=== PATIENT | female | born 1995 | race Caucasian/White ===

== ENCOUNTER 2021-06-27 16:33 | Emergency (ER) | payer OTHER ==
[~2021-06-27 16:33] MED LIST: MACROBID100 MG PO; ZOFRAN4 MG SL; ZOFRAN8 MG PO
[2021-06-27 18:34] LABS: BASOPHIL 0.2 % (0-2); EOSINOPHIL 0.4 % (0-5); HCT 40.4 % (37.0-47.0); LYMPHOCYTE 15.2 % (15-48); MCHC 32.2 g/dL (32.0-36.0); MCV 99.5 fL (78.0-100.0); MPV 10.9 fL (6.0-9.5); NEUTROPHIL 78.7 % (41-80); NRBC 0; PLT 274 K/uL (150-400); RBC 4.06 M/uL (4.20-5.40); RDW 11.9 % (11.5-14.0); WBC 16.2 K/uL (4.0-10.5)
[2021-06-27 19:06] LABS: LACTIC ACID 2.1 mmol/L (0.4-1.9)
[2021-06-27 19:12] LABS: BILIRUBIN NEGATIVE (NEGATIVE); BLOOD 1+ Ery/uL (NEGATIVE); CLARITY HAZY (CLEAR); COLOR YELLOW (YELLOW); GLUCOSE (U) NORMAL (NORMAL); LEUKOCYTES NEGATIVE Leu/uL (NEGATIVE); NITRITE POSITIVE (NEGATIVE); PROTEIN 1+ mg/dL (NEGATIVE); SPECIFIC GRAVITY >=1.030 (1.001-1.030); pH 5.5 (5.0-9.0)
[2021-06-27 19:16] LABS: BACTERIA 4+; BARBITURATES NEGATIVE (NEGATIVE); ECSTASY (MDMA) POSITIVE (NEGATIVE); MARIJUANA (THC) POSITIVE (NEGATIVE); METHADONE NEGATIVE (NEGATIVE); OPIATES NEGATIVE (NEGATIVE); SQUAMOUS EPITHELIAL CELLS 20-50; URINARY WBC RARE
[2021-06-27 19:17] LABS: AMPHETAMINES POSITIVE (NEGATIVE); OXYCODONE NEGATIVE (NEGATIVE)
[2021-06-27 19:23] LABS: ALBUMIN 4.2 g/dL (3.4-5.0); ALKALINE PHOSHATASE 71 U/L (46-116); ALT 15 U/L (14-59); AST 10 U/L (15-37); BILIRUBIN - TOTAL 0.9 mg/dL (0.2-1.0); BUN 10 mg/dL (7-18); BUN/CREAT RATIO (CALC) 13.3 RATIO; CHLORIDE 103 mmol/L (98-107); CO2 (BICARBONATE) 28 mmol/L (21-32); CREATININE 0.75 mg/dL (0.51-0.95); GLOBULIN (CALCULATION) 3.9 g/dL; GLUCOSE 122 mg/dL (74-106); POTASSIUM 3.2 mmol/L (3.5-5.1); TOTAL PROTEIN 8.1 g/dL (6.4-8.2)
[2021-06-27] MEDS ORDERED: AUGMENTIN 875-1 EACH PO (20:52)
[2021-06-27] MEDS ORDERED: ONDANSETRON ODT4 MG SL (20:52)
[2021-06-27] MEDS ORDERED: MACROBID100 MG PO (20:52)
[2021-06-27] MEDS ORDERED: ETODOLAC300 MG PO (20:52)
== END 2021-06-27 22:47 | disposition home or self-care (01) ==
LOC: FER 16:33
PROVIDERS: Emergency Medicine
DX: S02.2XXA Fracture of nasal bones, initial encounter for closed fracture (principal); S02.32XA Fracture of orbital floor, left side, initial encounter for closed fracture; V49.9XXA Car occupant (driver) (passenger) injured in unspecified traffic accident, initial encounter; Y92.410 Unspecified street and highway as the place of occurrence of the external cause
CPT/HCPCS: 36415; 70450; 70486; 80053; 80305; 81001; 83605; 85025; 93005; G0480; J0696; J1100; J1885; J2405; J7030